=== PATIENT | female | born 1970 | race Two or more races ===

== ENCOUNTER 2016-10-09 14:15 | Emergency (ER) | payer MEDICAID, OTHER ==
[~2016-10-09] VITALS: Ht 165.1 cm; Wt 72.0 kg
[~2016-10-09 14:15] MED LIST: AMO500 PO; IBUP-1542 PO; NPH10OT RIGHT EAR
[2016-10-09 14:19] VITALS: Ht 165.1 cm; Wt 72.0 kg
[2016-10-09] MEDS ORDERED: ELIM TOP (14:45)
[2016-10-09] MEDS ORDERED: BEN25 PO (14:46)
--- NOTE | 2016-10-09 14:57 | ERD ---
ER Documentation Chief Complaint Date/Time DATE: 10/09/16 TIME: 14:52 Chief Complaint pt bib self with c/o rash, she has been homeless and is worried HPI Patient is a 46-year-old female who presents to the emergency department for concerns of a rash and STD exposure. Patient states the rash started 2 days ago. Patient describes the rash to be on her chest bilateral arms and hands. Patient describes rash to the area she. Rashes red erythematous papular-like. Patient states that she is homeless. She recently started staying with a friend. Patient is also concerned about STDs. Patient states she would like to be tested for STDs at this time. Patient does report occasional white vaginal discharge. Patient denies any dysuria, frequency, urgency or hematuria. She denies any fevers, chills, nausea, vomiting, chest pain, shortness breath or LOC. Patient requesting basic blood work to check her liver function. ROS All systems reviewed and are negative except as per history of present illness. Medications Home Meds Active Scripts Diphenhydramine Hcl* (Benadryl*) 25 Mg Cap, 25 MG PO Q6, #30 CAP Prov:MAIA TRIANA PA-C 10/09/16 Permethrin* (Elimite*) 5% Cr, 1 APPLIC TOP ONCE, #1 TUB Prov:MAIA TRIANA PA-C 10/09/16 Ibuprofen* (Motrin*) 600 Mg Tab, 600 MG PO Q6H Y for PAIN AND OR ELEVATED TEMP, #30 TAB Prov:AMADEO CHO PA-C 01/31/16 Amoxicillin* (Amoxicillin*) 500 Mg Cap, 500 MG PO BID for 10 Days, CAP Prov:AMADEO CHO PA-C 01/31/16 Neomycin/Polymyxin/Hydrocort* (Cortisporin* Otic) 10 Ml Susp, 4 DROP RIGHT EAR QID for 7 Days, EA Prov:AMADEO CHO PA-C 01/31/16 Allergies Allergies: Coded Allergies: No Known Allergy (Unverified , 10/09/16) PMhx/Soc Hx Alcohol Use: Yes (Cocaine, meth) Hx Substance Use: Yes Hx Tobacco Use: Yes Physical Exam Vitals Vital Signs Date Time Temp Pulse Resp B/P Pulse Ox O2 Delivery O2 Flow Rate FiO2 8/15/17 14:19 98.3 74 16 134/78 98 Physical Exam GENERAL: Well-developed, well-nourished female. Appears in no acute distress. Eating in full sentences HEAD: Normocephalic, atraumatic. EYES: Pupils are equally reactive bilaterally. EOMs grossly intact. No conjunctival erythema. ENT: Moist mucous membranes. No uvula deviation. No kissing tonsils. NECK: Supple. No meningismus. Normal range of motion of the neck. LUNG: Clear to auscultation bilaterally. No rhonchi, wheezing, rales or coarse breath sounds. HEART: Regular rate and rhythm. No murmurs, rubs or gallops. EXTREMITIES: Equal pulses bilaterally. No peripheral clubbing, cyanosis or edema. No unilateral leg swelling. NEUROLOGIC: Alert and oriented. Moving all four extremities without any difficulty. Normal speech. Steady gait. SKIN: Erythematous vesicular lesions noted on patient's chest, bilateral arms and hands. Lesions noted in the webspaces. Excoriations noted. No warmth or swelling. Results 24 hrs Current Medications Medications (Trade) Dose Ordered Sig/Patricio Route PRN Reason Start Time Stop Time Status Last Admin Dose Admin Ceftriaxone Sodium (Rocephin) 250 mg ONCE ONCE IM 10/09/16 15:00 10/09/16 15:01 DC 10/09/16 14:58 Lidocaine (Xylocaine 1% (Mdv) 20 ml) 20 ml ONCE ONCE SC 10/09/16 15:00 10/09/16 15:01 DC 10/09/16 14:58 Azithromycin (Zithromax) 1,000 mg ONCE ONCE PO 10/09/16 15:00 10/09/16 15:01 DC 10/09/16 14:58 Procedures/MDM MEDICAL DECISION MAKING: This is a 46-year-old homeless female who presents emergency department for concerns of a rash and STD exposure. Vital signs were reviewed. Patient was afebrile. Patient is not diabetic. Skin exam revealed findings consistent with scabies. Patient's urine was checked today. Urine test was negative. Urine will be sent for gonorrhea and Chlamydia testing. Results pending. Patient wishes to be treated prophylactically at this time. Patient was given both Rocephin and azithromycin here in the emergency department. Patient tolerated these medications without any complications. Given these findings, the patients presentation is most consistent with scabies and possible STD exposure. I have a much lower clinical concern for necrotizing fasciitis, sepsis, gangrene, Ronni-Josh syndrome, toxic epidural necrolysis , abscess, cellulitis, herpes zoster, viral exanthem, anaphylaxis, allergic reaction, fungal infection, impetigo, dermatitis. Low suspicion for UTI, pyelonephritis, nephrolithiasis. PRESCRIPTIONS: Benadryl, permethrin cream DISCHARGE: At this time, patient is stable for discharge and outpatient management. Patient was advised to follow-up with a primary care physician for her basic blood work testing. I have advised the patient to avoid any new products, creams or possible allergens. I have advised the patient to avoid scratching the lesions. I have instructed the patient to follow-up with his/her primary care physician in 1-2 days. If symptoms persist, patient may need to see a burner technician for further examinations and testing. I have instructed the patient to promptly return to the ER at any time for any new or worsening symptoms including increased pain, fever, redness, swelling, warmth, difficulty breathing or vomiting. The patient and/or family expressed understanding of and agreement with this plan. All questions were answered. Home care instructions were provided. Disclaimer: Inadvertent spelling and grammatical errors are likely due to EHR/ dictation software use and do not reflect on the overall quality of patient care. Also, please note that the electronic time recorded on this note does not necessarily reflect the actual time of the patient encounter. Departure Diagnosis: Primary Impression: Concern about STD in female without diagnosis Additional Impression: Rash Condition: Stable Patient Instructions: Self-Care for Skin Rashes Referrals: [facility] YOU HAVE RECEIVED A MEDICAL SCREENING EXAM AND THE RESULTS INDICATE THAT YOU DO NOT HAVE A CONDITION THAT REQUIRES URGENT TREATMENT IN THE EMERGENCY DEPARTMENT. FURTHER EVALUATION AND TREATMENT OF YOUR CONDITION CAN WAIT UNTIL YOU ARE SEEN IN YOUR DOCTORS OFFICE WITHIN THE NEXT 1-2 DAYS. IT IS YOUR RESPONSIBILITY TO MAKE AN APPOINTMENT FOR FOLOW-UP CARE. IF YOU HAVE A PRIMARY DOCTOR --you should call your primary doctor and schedule an appointment IF YOU DO NOT HAVE A PRIMARY DOCTOR YOU CAN CALL OUR PHYSICIAN REFERRAL HOTLINE AT IF YOU CAN NOT AFFORD TO SEE A PHYSICIAN YOU CAN CHOSE FROM THE FOLLOWING [facility] [address] [facility] [address] [facility]. [facility] [address] [facility] [address] [facility] [phone] [address] [facility]. [facility] [address] [facility]. [facility] YOU HAVE RECEIVED A MEDICAL SCREENING EXAM AND THE RESULTS INDICATE THAT YOU DO NOT HAVE A CONDITION THAT REQUIRES URGENT TREATMENT IN THE EMERGENCY DEPARTMENT. FURTHER EVALUATION AND TREATMENT OF YOUR CONDITION CAN WAIT UNTIL YOU ARE SEEN IN YOUR DOCTORS OFFICE WITHIN THE NEXT 1-2 DAYS. IT IS YOUR RESPONSIBILITY TO MAKE AN APPOINTMENT FOR FOLOW-UP CARE. IF YOU HAVE A PRIMARY DOCTOR --you should call your primary doctor and schedule and appointment IF YOU DO NOT HAVE A PRIMARY DOCTOR YOU CAN CALL OUR PHYSICIAN REFERRAL HOTLINE AT . IF YOU CAN NOT AFFORD TO SEE A PHYSICIAN YOU CAN CHOSE FROM THE FOLLOWING [facility] INSTITUTIONS: [facility] [address] [place] [address] [facility] [address] [place] [address] [facility] [address] [place] [address] [facility] URGENT CARE/SPECIALTIES WATER [employer]ALITY CONTROL ENGINEER [place] [address] [facility] [address] [place] [address] OFFICE FAX MARA EDOUARD [address] [place], [place] [phone] DR. BRIZUELA CRIVITZ [address] [place], [place] [phone] JI POOLE [address] [facility], [address] [address] [address] [address] [facility] [place], [place] [phone] [facility] [address] [place], [place] [address] [address] [facility] [id number] - DR ENGLAND, GAGANDEEP [address], [facility] [id number] DR COONEY, ANJALI [address] [facility]. [address], [facility] [phone] MCCRACKEN, FARDE [address] [place] [address] Additional Instructions: Call your primary care doctor TOMORROW for an appointment during the next 1-2 days.See the doctor sooner or return here if your condition worsens before your appointment time. Follow-up with primary care physician for basic blood work and liver function tests. MAIA TRIANA PA-C Oct 09, 2016 14:57
[2016-10-09] MEDS ORDERED: AZITHROMYCIN 250 MG TAB PO ONE (15:00)
[2016-10-09] MEDS ORDERED: CEFTRIAXONE 250 MG INJ IM ONE (15:00)
[2016-10-09] MEDS ORDERED: LIDOCAINE 1% (MDV) 20 ML INJ SC ONE (15:00)
== END 2016-10-09 16:05 | disposition home or self-care (01) ==
LOC: FTE 14:15
DX: R21 Rash and other nonspecific skin eruption (principal); Z20.2 Contact with and (suspected) exposure to infections with a predominantly sexual mode of transmission; Z87.891 Personal history of nicotine dependence
CPT/HCPCS: 87591; 96372; J0696; Z7502; Z7610